=== PATIENT | male | born 1970 | race African-American/Black ===

== ENCOUNTER 2018-06-26 18:05 | Emergency (ER) | payer MEDICAID ==
[~2018-06-26] VITALS: Ht 177.8 cm; Wt 82.0 kg
[~2018-06-26 18:05] MED LIST: CYAN10009 PO; GABAPENTIN; GENVOYA PO; HCTZ; SITA50TA3 PO
[2018-06-26 18:26] VITALS: BP 149/89
== END 2018-06-26 20:20 | disposition left against medical advice (07) ==
LOC: ER 18:26
DX: Z53.21 Procedure and treatment not carried out due to patient leaving prior to being seen by health care provider (principal); I10 Essential (primary) hypertension; B20 Human immunodeficiency virus [HIV] disease

== ENCOUNTER 2018-07-07 16:26 | Emergency (ER) | payer MEDICAID ==
[~2018-07-07] VITALS: Ht 157.5 cm; Wt 82.0 kg
[2018-07-07] MEDS ORDERED: HYDR12.529 PO (16:42)
[2018-07-07] MEDS ORDERED: [UNRECOGNIZED DRUG - OTHER] (16:42)
[2018-07-07] MEDS ORDERED: BICT1TAB PO (16:44)
[2018-07-07] MEDS ORDERED: IBUPROFEN 800MG TABLET PO ONE (18:15)
[2018-07-07 18:24] VITALS: BP 136/79
== END 2018-07-07 19:12 | disposition home or self-care (01) ==
LOC: ER 16:26
DX: S09.8XXA Other specified injuries of head, initial encounter (principal); S16.1XXA Strain of muscle, fascia and tendon at neck level, initial encounter; I10 Essential (primary) hypertension; F12.10 Cannabis abuse, uncomplicated; V43.52XA Car driver injured in collision with other type car in traffic accident, initial encounter; Y93.89 Activity, other specified; Y92.488 Other paved roadways as the place of occurrence of the external cause
CPT/HCPCS: 99284

== ENCOUNTER 2018-08-27 02:41 | Emergency (ER) | payer MEDICAID ==
[~2018-08-27 02:41] MED LIST changes: +BICT1TAB PO; -GABAPENTIN; -GENVOYA PO; +HYDR12.529 PO; -SITA50TA3 PO
== END 2018-08-27 03:50 | disposition home or self-care (01) ==
LOC: ER 02:41
DX: H57.12 Ocular pain, left eye (principal); I10 Essential (primary) hypertension; F12.10 Cannabis abuse, uncomplicated; Z87.19 Personal history of other diseases of the digestive system; Y00.XXXA Assault by blunt object, initial encounter
CPT/HCPCS: 99283

== ENCOUNTER 2019-04-14 01:20 | Emergency (ER) | payer MEDICAID ==
[~2019-04-14] VITALS: Ht 177.8 cm; Wt 79.0 kg
[~2019-04-14 01:20] MED LIST changes: +CYAN-50 PO; -CYAN10009 PO
[2019-04-14 05:44] LABS: BASOPHILS % 0.9 % (0.0-2.0); EOSINOPHILS % 1.4 % (0.0-5.0); HEMATOCRIT. 46.5 % (42.0-52.0); HEMOGLOBIN. 15.4 g/dL (14.0-18.0); LYMPHOCYTES % 17.1 % (20.0-50.0); MEAN CORPUSCULAR HEMOGLOBIN 28.9 pg (28.0-32.0); MEAN CORPUSCULAR VOLUME 87.2 fL (80.0-94.0); MEAN PLATELET VOLUME 8.9 fl (7.4-10.4); NEUTROPHILS % 69.6 % (40.0-76.0); PLATELET 238 x1000/uL (130-400); RED BLOOD CELL COUNT 5.33 mill/uL (4.7-6.1); RED CELL DISTRIBUTION WIDTH 14.1 % (11.6-14.6)
[2019-04-14 05:48] LABS: CLARITY URINE CLEAR (CLEAR); COLOR URINE YELLOW (YELLOW); KETONES URINE NEGATIVE (NEGATIVE); LEUKOCYTE ESTERASE URINE 3+ (NEGATIVE); NITRITE URINE POSITIVE (NEGATIVE); OCCULT BLOOD URINE TRACE (NEGATIVE); PH URINE 7.5 (4.5-8.0); PROTEIN URINE NEGATIVE (NEGATIVE); SPECIFIC GRAVITY URINE 1.012 (1.005-1.030)
[2019-04-14 05:52] LABS: CHLORIDE 103 mEq/L (98-107)
[2019-04-14] MEDS ORDERED: MORPHINE SULFATE 4 MG/ML CPJ (NOT FOR IM USE) IV STA (06:40)
[2019-04-14] MEDS ORDERED: ONDANSETRON HCL 4MG/2ML INJ IV STA (06:40)
[2019-04-14] MEDS ORDERED: MORPHINE SULFATE 4 MG/ML CPJ (NOT FOR IM USE) IV ONE (08:15)
[2019-04-14] MEDS ORDERED: LEVOFLOXACIN 750MG PREMIX 150 ML IV ONE (08:45)
[2019-04-14] MEDS ORDERED: CEFTRIAXONE SODIUM 250 MG/VIAL IM ONE (09:00)
[2019-04-14] MEDS ORDERED: DOXYCYCLINE HYCLATE 100MG CAPSULE PO ONE (09:00)
[2019-04-14] MEDS ORDERED: CEFTRIAXONE 1 G PREMIX 50 ML IV SCH (10:30)
[2019-04-14] MEDS ORDERED: KETOROLAC 30MG/ML VIAL IV PRN (10:30)
[2019-04-14] MEDS ORDERED: CLONIDINE 0.1MG TABLET PO PRN (10:30)
[2019-04-14] MEDS ORDERED: SODIUM CHLORIDE 0.9% 1,000 ML IV SCH (10:30)
[2019-04-14] MEDS ORDERED: ACETAMINOPHEN 325MG TABLET PO PRN (10:30)
[2019-04-14] MEDS ORDERED: HYDROCODONE/ACETAMINOPHEN 5/325MG TABLET PO PRN (10:30)
[2019-04-14] MEDS ORDERED: ONDANSETRON HCL 4MG/2ML INJ IV PRN (10:30)
[2019-04-14 10:52] VITALS: BP 146/96
== END 2019-04-14 10:53 | disposition home or self-care (01) ==
LOC: ER 01:57 → CANRESERV 14:42 → ENRESERV 14:42 → CANBEDREQ 15:27
DX: K62.89 Other specified diseases of anus and rectum (principal); N39.0 Urinary tract infection, site not specified; R10.9 Unspecified abdominal pain; F12.10 Cannabis abuse, uncomplicated; Z79.899 Other long term (current) drug therapy
CPT/HCPCS: 36415; 74176; 80053; 81003; 83690; 85025; 87086; 96365; 96372; 96375; 96376; 99284; J0696; J1956; J2270; J2405; Z7610

== ENCOUNTER 2021-12-30 01:00 | Emergency (ER) | payer MEDICAID ==
[~2021-12-30] VITALS: Ht 177.8 cm; Wt 82.0 kg
[2021-12-30 01:12] VITALS: BP 140/94
[2021-12-30] MEDS ORDERED: IBUP-2029 MT (05:12)
== END 2021-12-30 05:21 | disposition home or self-care (01) ==
LOC: ER 01:00
DX: R07.89 Other chest pain (principal); I10 Essential (primary) hypertension; F12.10 Cannabis abuse, uncomplicated; Z21 Asymptomatic human immunodeficiency virus [HIV] infection status; V43.52XA Car driver injured in collision with other type car in traffic accident, initial encounter; W22.11XA Striking against or struck by driver side automobile airbag, initial encounter; Y93.89 Activity, other specified; Y92.488 Other paved roadways as the place of occurrence of the external cause
CPT/HCPCS: 71120; 93005; 99283

== ENCOUNTER 2022-03-02 00:39 | Emergency (ER) | payer MEDICAID ==
[~2022-03-02] VITALS: Ht 177.8 cm; Wt 80.0 kg
[~2022-03-02 00:39] MED LIST changes: +IBUP-2029 MT
[2022-03-02] MEDS ORDERED: TAM75 MT (05:53)
[2022-03-02] MEDS ORDERED: IBUP-2029 MT (05:53)
[2022-03-02] MEDS ORDERED: BENZ200C52 MT (05:53)
[2022-03-02 06:15] VITALS: BP 135/85
== END 2022-03-02 06:23 | disposition home or self-care (01) ==
LOC: ER 01:04
DX: B34.9 Viral infection, unspecified (principal); F12.10 Cannabis abuse, uncomplicated; I10 Essential (primary) hypertension; Z98.890 Other specified postprocedural states; Z79.899 Other long term (current) drug therapy
CPT/HCPCS: 93005; 99283

== ENCOUNTER 2022-10-20 14:35 | Emergency (ER) | payer MEDICAID ==
[~2022-10-20] VITALS: Ht 177.8 cm; Wt 80.0 kg
[~2022-10-20 14:35] MED LIST changes: +BENZ200C52 MT; +TAM75 MT
[2022-10-20 14:39] VITALS: O2SAT 100
[2022-10-20] MEDS ORDERED: KETOROLAC 30MG/ML VIAL IV STA (14:54)
[2022-10-20] MEDS ORDERED: SODIUM CHLORIDE 0.9% 1,000 ML IV ONE (15:00)
[2022-10-20 15:25] LABS: BASOPHILS % 0.8 % (0.0-2.0); EOSINOPHILS % 5.9 % (0.0-5.0); HEMATOCRIT. 47.6 % (42.0-52.0); HEMOGLOBIN. 16.2 g/dL (14.0-18.0); LYMPHOCYTES % 48.1 % (20.0-50.0); MEAN CORPUSCULAR HEMOGLOBIN 29.7 pg (28.0-32.0); MEAN CORPUSCULAR VOLUME 87.1 fL (80.0-94.0); MONOCYTES % 6.9 % (2.0-8.0); NEUTROPHILS % 38.3 % (40.0-76.0); PLATELET 289 x1000/uL (130-400); RED BLOOD CELL COUNT 5.46 mill/uL (4.7-6.1); RED CELL DISTRIBUTION WIDTH 15.4 % (11.6-14.6)
[2022-10-20 18:34] LABS: CHLORIDE 108 mEq/L (98-107)
[2022-10-20 18:36] LABS: CREATINE KINASE 61 IU/L (39-308); ETHANOL BLOOD < 10 mg/dL (-10)
[2022-10-20 19:08] LABS: CLARITY URINE CLEAR (CLEAR); COLOR URINE YELLOW (YELLOW); KETONES URINE NEGATIVE (NEGATIVE); LEUKOCYTE ESTERASE URINE TRACE (NEGATIVE); NITRITE URINE NEGATIVE (NEGATIVE); OCCULT BLOOD URINE NEGATIVE (NEGATIVE); PH URINE 7.5 (4.5-8.0); PROTEIN URINE NEGATIVE (NEGATIVE); SPECIFIC GRAVITY URINE 1.014 (1.005-1.030)
[2022-10-20 19:20] LABS: *AMPHETAMINES SCREEN URINE PRESUMTIVE POSITIVE (NEGATIVE); *BARBITURATES SCREEN URINE NEGATIVE (NEGATIVE); *BENZODIAZEPINES SCREEN URINE NEGATIVE (NEGATIVE); *COCAINE SCREEN URINE NEGATIVE (NEGATIVE); CANNABINOID URINE SCREEN NEGATIVE (NEGATIVE); METHADONE URINE SCREEN NEGATIVE (NEGATIVE); OPIATES URINE SCREEN NEGATIVE (NEGATIVE); PHENCYCLIDINE URINE SCREEN NEGATIVE (NEGATIVE)
[2022-10-20 20:07] VITALS: BP 145/101; PULSE 82; RESP 18; TEMP 98.7
== END 2022-10-20 20:12 | disposition home or self-care (01) ==
LOC: ER 14:35
DX: R53.1 Weakness (principal); F12.10 Cannabis abuse, uncomplicated; I10 Essential (primary) hypertension; R51.9 Headache, unspecified; Z20.822 Contact with and (suspected) exposure to COVID-19
CPT/HCPCS: 80053; 80305; 81003; 80307; 80329; 80320; 82550; 83690; 84443; 85025; 84484; 87804 ×2; 36415; 71045; 70450; 93005; 96361; 96374; 99285; 87426; J1885; C9803; Z7610 ×4; G0480

== ENCOUNTER 2023-04-01 18:26 | Emergency (ER) | payer MEDICAID ==
[~2023-04-01] VITALS: Ht 177.8 cm; Wt 86.0 kg
[2023-04-01 18:29] VITALS: O2SAT 100
[2023-04-01 19:35] VITALS: BP 124/68; PULSE 72; RESP 18; TEMP 97.8
== END 2023-04-01 19:35 | disposition home or self-care (01) ==
LOC: ER 18:26
DX: M54.2 Cervicalgia (principal); M54.6 Pain in thoracic spine; I10 Essential (primary) hypertension; Z79.899 Other long term (current) drug therapy; V49.49XA Driver injured in collision with other motor vehicles in traffic accident, initial encounter; Y93.89 Activity, other specified; Y92.89 Other specified places as the place of occurrence of the external cause; Y99.8 Other external cause status
CPT/HCPCS: 99281

== ENCOUNTER 2023-10-21 14:23 | Emergency (ER) | payer MEDICAID ==
[~2023-10-21] VITALS: Ht 175.3 cm; Wt 75.0 kg
[2023-10-21 14:37] VITALS: BP 125/78; PULSE 101; RESP 18; TEMP 98.5; O2SAT 100
[2023-10-21] MEDS: TETRACAINE 0.5% OPHTH DROPS 4ML LEFTEYE ONE (15:15)
[2023-10-21] MEDS: SODIUM CHLORIDE 0.9% IRRIG SOL 2,000 ML IR NR (15:15)
[2023-10-21] MEDS ORDERED: SODIUM CHLORIDE 0.9% IRRIG SOLUTION 1000ML IR ONE (15:15)
[2023-10-21] MEDS: FLUORESCEIN SODIUM 1MG/STRIP LEFTEYE ONE (15:15)
[2023-10-21] MEDS ORDERED: BO1 TP (19:04)
[2023-10-21] MEDS ORDERED: OCUFLX LEFTEYE (19:04)
== END 2023-10-21 19:43 | disposition home or self-care (01) ==
LOC: ER 14:23
DX: S05.92XA Unspecified injury of left eye and orbit, initial encounter (principal); T65.91XA Toxic effect of unspecified substance, accidental (unintentional), initial encounter; I10 Essential (primary) hypertension; Z98.890 Other specified postprocedural states; Z79.899 Other long term (current) drug therapy; X58.XXXA Exposure to other specified factors, initial encounter; Y93.89 Activity, other specified; Y99.8 Other external cause status; Y92.89 Other specified places as the place of occurrence of the external cause
CPT/HCPCS: 96360; 99283

== ENCOUNTER 2024-06-09 08:43 | Emergency (ER) | payer MEDICAID ==
[~2024-06-09] VITALS: Ht 177.8 cm; Wt 80.0 kg
[~2024-06-09 08:43] MED LIST changes: +BO1 TP; +OCUFLX LEFTEYE
[2024-06-09 08:49] VITALS: TEMP 36.6; O2SAT 100
[2024-06-09 09:00] VITALS: O2SAT 98
[2024-06-09 09:42] LABS: BASOPHILS % 0.2 % (0.0-2.0); EOSINOPHILS % 5.1 % (0.0-5.0); HEMATOCRIT. 46.9 % (42.0-52.0); LYMPHOCYTES % 44.4 % (20.0-50.0); MEAN CORPUSCULAR HEMOGLOBIN 26.7 pg (28.0-32.0); MEAN CORPUSCULAR VOLUME 83.6 fL (80.0-94.0); MONOCYTES % 10.8 % (2.0-8.0); NEUTROPHILS % 39.5 % (40.0-76.0); PLATELET 273 x1000/uL (130-400); RED BLOOD CELL COUNT 5.61 mill/uL (4.7-6.1); RED CELL DISTRIBUTION WIDTH 13.9 % (11.6-14.6); WHITE BLOOD COUNT 3.4 x1000/uL (4.5-11.0)
[2024-06-09 09:47] LABS: CARBON DIOXIDE 29 mEq/L (21-32); CHLORIDE 105 mEq/L (98-107); POTASSIUM 4.2 mEq/L (3.5-5.1); SODIUM 140 mEq/L (136-145)
[2024-06-09 09:48] LABS: CALCIUM 9.3 mg/dL (8.7-10.4)
[2024-06-09 09:52] LABS: CREATININE 1.1 mg/dL (0.6-1.3)
[2024-06-09 09:53] LABS: GLUCOSE 76 mg/dL (70-105); UREA NITROGEN BLOOD 10 mg/dL (9-23)
[2024-06-09 09:55] LABS: ALANINE AMINOTRANSFERASE 21 IU/L (10-49); ALBUMIN 4.1 g/dL (3.2-4.8); ASPARTATE AMINOTRANSFERASE 18 IU/L (<34); BILIRUBIN DIRECT 0.2 mg/dL (<=3.0); BILIRUBIN TOTAL 0.7 mg/dL (0.1-1.0); PROTEIN TOTAL 7.6 g/dL (6.0-8.3)
[2024-06-09 10:00] LABS: ETHANOL BLOOD < 10 mg/dL (<10)
[2024-06-09 10:27] VITALS: BP 140/86; PULSE 99; RESP 13
[2024-06-09] MEDS: KETOROLAC 30MG/ML VIAL IM ONE (10:27)
== END 2024-06-09 10:28 | disposition home or self-care (01) ==
LOC: ER 08:43
DX: R10.84 Generalized abdominal pain (principal); I10 Essential (primary) hypertension; Z79.899 Other long term (current) drug therapy
CPT/HCPCS: 80076; 80048; 80320; 83605; 83690; 85025; 36415; 96372; 99283; J1885; G0480